=== PATIENT | male | born 1965 | race Caucasian/White ===

== ENCOUNTER 2021-01-26 11:32 | Inpatient (IN) ==
[2021-01-26] MEDS ORDERED: Aspirin 81 MG TAB.CHEW PO ONE (11:35)
[2021-01-26] MEDS ORDERED: methylPREDNISolone 125 MG/2 ML VIAL IVP ONE (11:44)
[2021-01-26] MEDS ORDERED: Ipratropium/Albuterol Neb 3 ML IH ONE (11:44)
[2021-01-26 11:53] LABS: Basophils % 0.4 %; Eosinophils # 0.2 K/mcL (0.0-0.6); Eosinophils % 2.2 %; Hematocrit 48.8 % (37.5-50.1); Hemoglobin 15.6 g/dL (12.9-16.9); Immature Granulocytes % 0.3 % (0-4); Lymphocytes # 2.1 K/mcL (0.6-4.6); Lymphocytes % 31.4 %; Mean Corpuscular Hemoglobin 29.3 pg (28.0-33.3); Mean Corpuscular Volume 91.6 fL (83.0-100.0); Mean Platelet Volume 9.8 fL (9.4-12.4); Monocytes # 0.6 K/mcL (0.0-1.3); Monocytes % 8.1 %; Neutrophils # 3.9 K/mcL (1.6-8.9); Platelet Count 204 K/mcL (140-400); Red Blood Count 5.33 M/mcL (4.19-5.50); Red Cell Distribution Width 13.2 % (11.5-14.5); Segmented Neutrophils % 57.6 %; White Blood Count 6.8 K/mcL (4.3-11.1)
[2021-01-26 12:00] LABS: Prothrombin Time 11.5 Seconds (9.4-12.1)
[2021-01-26 12:03] LABS: Activated Partial Thrombo Time 30.1 Seconds (26.0-36.0)
[2021-01-26] MEDS ORDERED: 0.9 % Sodium Chloride 1,000 ML IVC ONE ×2 (12:06→14:51)
[2021-01-26 12:22] LABS: Alanine Aminotransferase 17 Units/L (7-52); Albumin/Globulin Ratio 1.9 (1.1-2.2); Alkaline Phosphatase 84 Units/L (34-104); Aspartate Amino Transferase 18 Units/L (13-39); BUN/Creatinine Ratio 29 (6-26); Bilirubin,Direct 0.1 mg/dL (0.0-0.2); Bilirubin,Indirect 0.5 mg/dL (0.0-1.0); Bilirubin,Total 0.6 mg/dL (0.3-1.0); Blood Urea Nitrogen 30 mg/dL (6-20); Calcium 9.6 mg/dL (8.6-10.3); Carbon Dioxide 26 mEq/L (23-29); Chloride 109 mEq/L (98-107); Globulin 2.1 g/dL (2.4-3.5); Glucose 143 mg/dL (70-105); Lipase 31 Units/L (11-82); Osmolality,Calculated 301 (280-300); Potassium 4.3 mEq/L (3.5-5.1); Sodium 141 mEq/L (136-145); Total Protein 6.1 g/dL (6.4-8.9); Troponin I < 0.03 ng/mL (< 0.04); eGFR For African Americans > 60 (> 60); eGFR For Non-African Americans > 60 (> 60)
[2021-01-26] MEDS ORDERED: DilTIAZem 50 MG/50 ML IV.SOLN IVC SCH (12:30)
[2021-01-26] MEDS ORDERED: Azithromycin 500 MG in 0.9 % Sodium Chloride 250 ML IVPB ONE (12:36)
[2021-01-26] MEDS ORDERED: *HR* Heparin 5,000 UNIT/ML VIAL IVP PRN ×2 (12:52)
[2021-01-26] MEDS ORDERED: *HR* Heparin 5,000 UNIT/ML VIAL IVP ONE (12:52)
[2021-01-26] MEDS ORDERED: Melatonin 3 MG TABLET PO PRN (13:03)
[2021-01-26] MEDS ORDERED: Ondansetron ODT 4 MG TAB.RAPDIS SL PRN (13:03)
[2021-01-26] MEDS ORDERED: Mag Hydrox/Al Hydrox/Simeth 30 ML UDC PO PRN (13:03)
[2021-01-26] MEDS ORDERED: Naloxone 0.4 MG/ML INJ IVP PRN (13:03)
[2021-01-26] MEDS: Heparin 25,000UNIT/250ML 1/2NS 25,000 UNIT/250 ML IV.SOLN IVC SCH (14:00)
[2021-01-26] MEDS ORDERED: *HR* Metoprolol 5 MG/5 ML VIAL IVP ONE (14:52)
[2021-01-26] MEDS ORDERED: Perflutren Lipid Microsphere 1.3 ML in 0.9 % Sodium Chloride 8.7 ML IVP PRN (15:12)
[2021-01-26] MEDS: Levalbuterol Neb 1.25 MG/3 ML IH SCH ×2 (15:24→20:00)
[2021-01-26] MEDS: Ipratropium Neb 0.5 MG NEBULIZER IH SCH ×3 (15:24→23:29)
[2021-01-26] MEDS: DilTIAZem 50 MG/50 ML IV.SOLN IVC SCH ×2 (16:02→23:39)
[2021-01-26] MEDS: Nicotine 21 MG PATCH.TD24 TD SCH (16:23)
[2021-01-27 00:28] LABS: Hematocrit 44.9 % (37.5-50.1); Hemoglobin 14.6 g/dL (12.9-16.9); Mean Corpuscular HGB Conc 32.5 g/dL (31.6-35.5); Mean Corpuscular Hemoglobin 29.9 pg (28.0-33.3); Mean Corpuscular Volume 91.8 fL (83.0-100.0); Platelet Count 199 K/mcL (140-400); Red Blood Count 4.89 M/mcL (4.19-5.50); Red Cell Distribution Width 12.9 % (11.5-14.5); White Blood Count 7.3 K/mcL (4.3-11.1)
[2021-01-27 00:45] LABS: BUN/Creatinine Ratio 31 (6-26); Blood Urea Nitrogen 27 mg/dL (6-20); Carbon Dioxide 22 mEq/L (23-29); Chloride 107 mEq/L (98-107); Glucose 228 mg/dL (70-105); Osmolality,Calculated 296 (280-300); Potassium 3.7 mEq/L (3.5-5.1); Sodium 137 mEq/L (136-145); eGFR For African Americans > 60 (> 60); eGFR For Non-African Americans > 60 (> 60)
[2021-01-27] MEDS: Levalbuterol Neb 1.25 MG/3 ML IH SCH ×4 (03:48→20:05)
[2021-01-27] MEDS: Ipratropium Neb 0.5 MG NEBULIZER IH SCH ×5 (03:48→20:05)
[2021-01-27] MEDS: DilTIAZem 50 MG/50 ML IV.SOLN IVC SCH ×2 (05:28→14:30)
[2021-01-27] MEDS: Heparin 25,000UNIT/250ML 1/2NS 25,000 UNIT/250 ML IV.SOLN IVC SCH (05:30)
[2021-01-27 10:18] LABS: Magnesium 1.9 mg/dL (1.6-2.6)
[2021-01-27 10:31] LABS: Thyroid Stimulating Hormone 0.654 mcIU/mL (0.340-5.600)
[2021-01-27] MEDS ORDERED: *HR* Heparin 5,000 UNIT/ML VIAL IVP ONE (10:39)
[2021-01-27] MEDS ORDERED: *HR* Heparin 5,000 UNIT/ML VIAL IVP PRN ×2 (10:39)
[2021-01-27] MEDS ORDERED: Heparin 25,000UNIT/250ML 1/2NS 25,000 UNIT/250 ML IV.SOLN IVC SCH (10:45)
[2021-01-27] MEDS: predniSONE 20 MG TABLET PO SCH (11:13)
[2021-01-27] MEDS: Nicotine 21 MG PATCH.TD24 TD SCH (11:13)
[2021-01-27 13:33] LABS: Bilirubin,Urine Negative (Negative); Blood,Urine Trace (Negative); Clarity,Urine Clear (Clear); Color,Urine Light-Yellow (Yellow); Glucose,Urine (UA) >=1000 mg/dL (Normal); Ketones,Urine Trace mg/dL (Negative); Leukocyte Esterase,Urine Negative (Negative); Mucus,Urine Few per lpf (None-Few); Nitrite,Urine Negative (Negative); Protein,Urine Trace mg/dL (Neg-Trace); RBC,Urine 0-3 per hpf (0-3); Specific Gravity,Urine > 1.030 (1.010-1.025); Urobilinogen,Urine Normal (Normal); WBC,Urine 0-3 per hpf (0-3)
[2021-01-28] MEDS: Ipratropium Neb 0.5 MG NEBULIZER IH SCH ×7 (00:26→23:37)
[2021-01-28] MEDS: Levalbuterol Neb 1.25 MG/3 ML IH SCH ×4 (04:11→20:21)
[2021-01-28] MEDS: Heparin 25,000UNIT/250ML 1/2NS 25,000 UNIT/250 ML IV.SOLN IVC SCH (04:43)
[2021-01-28 04:50] LABS: Basophils % 0.2 %; Hematocrit 43.6 % (37.5-50.1); Hemoglobin 13.9 g/dL (12.9-16.9); Immature Granulocytes % 0.5 % (0-4); Lymphocytes # 1.5 K/mcL (0.6-4.6); Lymphocytes % 14.2 %; Mean Corpuscular HGB Conc 31.9 g/dL (31.6-35.5); Mean Corpuscular Hemoglobin 29.1 pg (28.0-33.3); Mean Corpuscular Volume 91.2 fL (83.0-100.0); Mean Platelet Volume 10.3 fL (9.4-12.4); Monocytes # 0.7 K/mcL (0.0-1.3); Monocytes % 6.6 %; Neutrophils # 8.4 K/mcL (1.6-8.9); Platelet Count 198 K/mcL (140-400); Red Blood Count 4.78 M/mcL (4.19-5.50); Red Cell Distribution Width 13.3 % (11.5-14.5); Segmented Neutrophils % 78.5 %; White Blood Count 10.7 K/mcL (4.3-11.1)
[2021-01-28] MEDS: DilTIAZem 50 MG/50 ML IV.SOLN IVC SCH (04:50)
[2021-01-28 05:06] LABS: Prothrombin Time 11.9 Seconds (9.4-12.1)
[2021-01-28 05:11] LABS: BUN/Creatinine Ratio 37 (6-26); Blood Urea Nitrogen 29 mg/dL (6-20); Calcium 8.8 mg/dL (8.6-10.3); Carbon Dioxide 23 mEq/L (23-29); Chloride 109 mEq/L (98-107); Glucose 130 mg/dL (70-105); Osmolality,Calculated 300 (280-300); Potassium 3.8 mEq/L (3.5-5.1); Sodium 141 mEq/L (136-145); eGFR For African Americans > 60 (> 60); eGFR For Non-African Americans > 60 (> 60)
[2021-01-28 05:12] LABS: Chol/HDL Ratio 3.8 (0-4.9)
[2021-01-28] MEDS: Aspirin 81 MG TAB.CHEW PO SCH (07:37)
[2021-01-28] MEDS: Metoprolol XL (24 HR) Succ 50 MG TAB.ER.24H PO SCH (07:37)
[2021-01-28] MEDS: predniSONE 20 MG TABLET PO SCH (07:37)
[2021-01-28 09:19] LABS: Estimated Average Glucose 126 mg/dl
[2021-01-28] MEDS: Nicotine 21 MG PATCH.TD24 TD SCH (10:40)
[2021-01-28] MEDS ORDERED: *HR* Midazolam HCl 2 MG/2 ML VIAL ONE (16:14)
[2021-01-28] MEDS ORDERED: ISOVUE-370 200 ML INFUS..BTL ONE (16:15)
[2021-01-28] MEDS ORDERED: Nitroglycerin 1,000 MCG/5 ML VIAL IV ONE (16:15)
[2021-01-28] MEDS ORDERED: *HR* FentaNYL (PF) 100 MCG/2 ML VIAL ONE (16:15)
[2021-01-28] MEDS ORDERED: *HR* Heparin 10,000 UNIT/10 ML VIAL ONE (16:15)
[2021-01-28] MEDS ORDERED: Heparin 1,000 UNITS/500 mL 500 ML ONE (16:15)
[2021-01-28] MEDS ORDERED: 0.9 % Sodium Chloride 2,000 ML ONE (16:15)
[2021-01-28] MEDS ORDERED: D5% in Water 100 ML ONE (16:45)
[2021-01-28] MEDS: DilTIAZem 50 MG in 0.9 % Sodium Chloride 40 ML IVC SCH (17:30)
[2021-01-29] MEDS: Ipratropium Neb 0.5 MG NEBULIZER IH SCH ×5 (04:16→20:38)
[2021-01-29] MEDS: Levalbuterol Neb 1.25 MG/3 ML IH SCH ×4 (04:16→20:37)
[2021-01-29 05:55] LABS: Basophils % 0.2 %; Eosinophils % 0.3 %; Hematocrit 46.1 % (37.5-50.1); Hemoglobin 14.7 g/dL (12.9-16.9); Immature Granulocytes % 0.4 % (0-4); Lymphocytes # 2.9 K/mcL (0.6-4.6); Lymphocytes % 29.3 %; Mean Corpuscular HGB Conc 31.9 g/dL (31.6-35.5); Mean Corpuscular Hemoglobin 29.2 pg (28.0-33.3); Mean Corpuscular Volume 91.7 fL (83.0-100.0); Mean Platelet Volume 10.3 fL (9.4-12.4); Monocytes # 0.7 K/mcL (0.0-1.3); Monocytes % 6.7 %; Neutrophils # 6.3 K/mcL (1.6-8.9); Platelet Count 197 K/mcL (140-400); Red Blood Count 5.03 M/mcL (4.19-5.50); Red Cell Distribution Width 13.6 % (11.5-14.5); Segmented Neutrophils % 63.1 %
[2021-01-29 06:15] LABS: BUN/Creatinine Ratio 30 (6-26); Blood Urea Nitrogen 26 mg/dL (6-20); Calcium 8.7 mg/dL (8.6-10.3); Carbon Dioxide 24 mEq/L (23-29); Chloride 108 mEq/L (98-107); Glucose 118 mg/dL (70-105); Osmolality,Calculated 296 (280-300); Potassium 3.8 mEq/L (3.5-5.1); Sodium 140 mEq/L (136-145); eGFR For African Americans > 60 (> 60); eGFR For Non-African Americans > 60 (> 60)
[2021-01-29] MEDS: Heparin 25,000UNIT/250ML 1/2NS 25,000 UNIT/250 ML IV.SOLN IVC SCH ×2 (06:31→18:26)
[2021-01-29 09:18] LABS: Phosphorous 3.4 mg/dL (2.7-4.5)
[2021-01-29] MEDS ORDERED: Metoprolol XL (24 HR) Succ 50 MG TAB.ER.24H PO SCH (10:30)
[2021-01-29] MEDS: lisinopriL 5 MG TABLET PO SCH (11:02)
[2021-01-29] MEDS: predniSONE 20 MG TABLET PO SCH (11:03)
[2021-01-29] MEDS: Aspirin 81 MG TAB.CHEW PO SCH (11:03)
[2021-01-29] MEDS: Nicotine 21 MG PATCH.TD24 TD SCH (11:12)
[2021-01-29] MEDS: Metoprolol XL (24 HR) Succ 50 MG TAB.ER.24H PO SCH ×2 (11:19→20:05)
[2021-01-29] MEDS: DilTIAZem 50 MG in 0.9 % Sodium Chloride 40 ML IVC SCH (11:20)
[2021-01-29] MEDS ORDERED: Lidocaine Viscous Oral Soln 15 ML SOLUTION ONE (12:50)
[2021-01-29] MEDS ORDERED: *HR* Midazolam HCl 5 MG/5 ML VIAL IVP ONE ×2 (12:51→12:54)
[2021-01-29] MEDS ORDERED: *HR* FentaNYL (PF) 250 MCG/5 ML VIAL ONE (12:51)
[2021-01-29] MEDS: *HR* Rivaroxaban 10 MG TABLET PO SCH (17:18)
[2021-01-30] MEDS: Ipratropium Neb 0.5 MG NEBULIZER IH SCH ×6 (00:18→20:14)
[2021-01-30] MEDS: Levalbuterol Neb 1.25 MG/3 ML IH SCH ×3 (04:09→16:01)
[2021-01-30 06:34] LABS: Mean Corpuscular HGB Conc 32.6 g/dL (31.6-35.5); Mean Corpuscular Hemoglobin 30.1 pg (28.0-33.3); Mean Corpuscular Volume 92.2 fL (83.0-100.0); Mean Platelet Volume 10.2 fL (9.4-12.4); Platelet Count 200 K/mcL (140-400); Red Blood Count 4.99 M/mcL (4.19-5.50); Red Cell Distribution Width 13.4 % (11.5-14.5); White Blood Count 10.3 K/mcL (4.3-11.1)
[2021-01-30 07:00] LABS: BUN/Creatinine Ratio 34 (6-26); Blood Urea Nitrogen 28 mg/dL (6-20); Calcium 8.7 mg/dL (8.6-10.3); Carbon Dioxide 24 mEq/L (23-29); Chloride 107 mEq/L (98-107); Glucose 104 mg/dL (70-105); Magnesium 2.1 mg/dL (1.6-2.6); Osmolality,Calculated 292 (280-300); Potassium 3.8 mEq/L (3.5-5.1); Sodium 138 mEq/L (136-145); eGFR For African Americans > 60 (> 60); eGFR For Non-African Americans > 60 (> 60)
[2021-01-30] MEDS: Metoprolol XL (24 HR) Succ 50 MG TAB.ER.24H PO SCH ×2 (08:48→22:15)
[2021-01-30] MEDS: predniSONE 20 MG TABLET PO SCH (08:49)
[2021-01-30] MEDS: lisinopriL 5 MG TABLET PO SCH (08:49)
[2021-01-30] MEDS: Aspirin 81 MG TAB.CHEW PO SCH (08:50)
[2021-01-30] MEDS ORDERED: *HR* FentaNYL (PF) 250 MCG/5 ML VIAL ONE (08:59)
[2021-01-30] MEDS: Nicotine 21 MG PATCH.TD24 TD SCH (09:00)
[2021-01-30] MEDS ORDERED: *HR* Midazolam HCl 5 MG/5 ML VIAL IVP ONE (09:00)
[2021-01-30] MEDS ORDERED: Lidocaine Viscous Oral Soln 15 ML SOLUTION ONE (09:19)
[2021-01-30] MEDS: *HR* Rivaroxaban 10 MG TABLET PO SCH (17:24)
[2021-01-30] MEDS ORDERED: Levalbuterol Neb 1.25 MG/3 ML IH PRN (20:13)
[2021-01-30] MEDS ORDERED: Ipratropium Neb 0.5 MG NEBULIZER IH PRN (20:13)
[2021-01-31 05:58] LABS: Hematocrit 48.4 % (37.5-50.1); Hemoglobin 15.1 g/dL (12.9-16.9); Mean Corpuscular HGB Conc 31.2 g/dL (31.6-35.5); Mean Corpuscular Hemoglobin 28.7 pg (28.0-33.3); Mean Corpuscular Volume 91.8 fL (83.0-100.0); Platelet Count 215 K/mcL (140-400); Red Blood Count 5.27 M/mcL (4.19-5.50); Red Cell Distribution Width 13.2 % (11.5-14.5); White Blood Count 11.3 K/mcL (4.3-11.1)
[2021-01-31 06:17] LABS: BUN/Creatinine Ratio 41 (6-26); Blood Urea Nitrogen 34 mg/dL (6-20); Calcium 8.8 mg/dL (8.6-10.3); Carbon Dioxide 25 mEq/L (23-29); Chloride 106 mEq/L (98-107); Glucose 99 mg/dL (70-105); Magnesium 2.1 mg/dL (1.6-2.6); Osmolality,Calculated 294 (280-300); Phosphorous 4.4 mg/dL (2.7-4.5); Potassium 3.9 mEq/L (3.5-5.1); Sodium 138 mEq/L (136-145); eGFR For African Americans > 60 (> 60); eGFR For Non-African Americans > 60 (> 60)
[2021-01-31 07:29] VITALS: BP 102/63
[2021-01-31] MEDS: Metoprolol XL (24 HR) Succ 50 MG TAB.ER.24H PO SCH (09:44)
[2021-01-31] MEDS: lisinopriL 5 MG TABLET PO SCH (09:44)
[2021-01-31] MEDS: Aspirin 81 MG TAB.CHEW PO SCH (09:44)
[2021-01-31] MEDS: Nicotine 21 MG PATCH.TD24 TD SCH (09:45)
== END 2021-01-31 12:35 | disposition home or self-care (01) | DRG 286 ==
LOC: SUATTDRO → EMEROOARM 11:32 → 2NENU 11:32 → 2NNU 14:50 → 2NENU 15:05 → SUATTDRO 01-28 15:40
PROVIDERS: ADMIT Family Medicine; ATTEND Internal Medicine

== ENCOUNTER 2021-12-04 21:04 | Inpatient (IN) ==
[2021-12-04] MEDS ORDERED: *HR* Metoprolol 5 MG/5 ML VIAL IVP ONE (21:36)
[2021-12-04] MEDS ORDERED: 0.9 % Sodium Chloride 1,000 ML IVC ONE (21:36)
[2021-12-04] MEDS ORDERED: Aspirin 325 MG TABLET PO ONE (21:36)
[2021-12-04 21:52] LABS: Basophils % 0.4 %; Eosinophils # 0.2 K/mcL (0.0-0.6); Hematocrit 42.6 % (37.5-50.1); Hemoglobin 14.1 g/dL (12.9-16.9); Immature Granulocytes % 0.4 % (0-4); Lymphocytes # 2.8 K/mcL (0.6-4.6); Lymphocytes % 37.8 %; Mean Corpuscular HGB Conc 33.1 g/dL (31.6-35.5); Mean Corpuscular Hemoglobin 30.7 pg (28.0-33.3); Mean Corpuscular Volume 92.8 fL (83.0-100.0); Mean Platelet Volume 9.9 fL (9.4-12.4); Monocytes # 0.7 K/mcL (0.0-1.3); Monocytes % 9.1 %; Neutrophils # 3.8 K/mcL (1.6-8.9); Platelet Count 164 K/mcL (140-400); Red Blood Count 4.59 M/mcL (4.19-5.50); Red Cell Distribution Width 12.5 % (11.5-14.5); Segmented Neutrophils % 50.3 %; White Blood Count 7.5 K/mcL (4.3-11.1)
[2021-12-04 21:57] LABS: INR 1.1; Prothrombin Time 12.5 Seconds (9.4-12.1)
[2021-12-04 22:00] LABS: Activated Partial Thrombo Time 37.3 Seconds (26.0-36.0)
[2021-12-04 22:02] LABS: D-Dimer < 215 ng/mLFEU (0-500)
[2021-12-04 22:12] LABS: BUN/Creatinine Ratio 35 (6-26); Blood Urea Nitrogen 35 mg/dL (6-20); Calcium 9.3 mg/dL (8.6-10.3); Carbon Dioxide 28 mEq/L (23-29); Chloride 104 mEq/L (98-107); Ethanol < 10 mg/dL (Less than 10); Glucose 122 mg/dL (70-105); Osmolality,Calculated 295 (280-300); Potassium 3.5 mEq/L (3.5-5.1); Sodium 138 mEq/L (136-145); Troponin I < 0.03 ng/mL (< 0.04); eGFR For African Americans > 60 (> 60); eGFR For Non-African Americans > 60 (> 60)
[2021-12-04 22:49] LABS: Bacteria,Urine Few per hpf (None-Few); Bilirubin,Urine Negative (Negative); Blood,Urine Small (Negative); Clarity,Urine Clear (Clear); Color,Urine Light-Yellow (Yellow); Glucose,Urine (UA) Normal (Normal); Ketones,Urine Negative (Negative); Leukocyte Esterase,Urine Negative (Negative); Mucus,Urine Few per lpf (None-Few); Nitrite,Urine Negative (Negative); PH,Urine 5.5 pH Units (5.0-8.0); Protein,Urine Trace mg/dL (Neg-Trace); RBC,Urine 0-3 per hpf (0-3); Specific Gravity,Urine 1.024 (1.010-1.025); Urobilinogen,Urine Normal (Normal); WBC,Urine 0-3 per hpf (0-3)
[2021-12-04 23:04] LABS: Amphetamine Screen,Urine Negative ng/mL (Cutoff=1000); Barbiturate Screen,Urine Negative ng/mL (Cutoff=200); Benzodiazepines Screen,Urine Negative ng/mL (Cutoff=200); Cannabinoid Screen,Urine Positive ng/mL (Cutoff = 50); Cocaine Screen,Urine Negative ng/mL (Cutoff= 300); Opiate Screen,Urine Negative ng/mL (Cutoff=300); Phencyclidine Screen,Urine Negative ng/mL (Cutoff=25)
[2021-12-05] MEDS ORDERED: 0.9 % Sodium Chloride 1,000 ML IVC ONE (00:48)
[2021-12-05] MEDS ORDERED: Melatonin 3 MG TABLET PO PRN (01:46)
[2021-12-05] MEDS ORDERED: Naloxone 0.4 MG/ML INJ IVP PRN (01:46)
[2021-12-05] MEDS ORDERED: Saliva Stimulant 44.3ml BOTTLE PO PRN ×2 (01:52→02:01)
[2021-12-05] MEDS ORDERED: D5% in Water 1,000 ML IVC PRN (02:49)
[2021-12-05] MEDS ORDERED: *HR* Dextrose 50 % in Water (Syg) 50 ML SYRINGE IVP PRN (02:49)
[2021-12-05] MEDS ORDERED: Dextrose 4 GM Chewable Tablets PO PRN ×2 (02:49)
[2021-12-05] MEDS ORDERED: Isovue-370 500 ML BOTTLE IVP ONE (03:19)
[2021-12-05] MEDS: Ipratropium/Albuterol Neb 3 ML IH SCH ×6 (04:02→23:08)
[2021-12-05 04:32] LABS: Hematocrit 40.3 % (37.5-50.1); Mean Corpuscular HGB Conc 32.3 g/dL (31.6-35.5); Mean Corpuscular Hemoglobin 30.1 pg (28.0-33.3); Mean Corpuscular Volume 93.3 fL (83.0-100.0); Platelet Count 154 K/mcL (140-400); Red Blood Count 4.32 M/mcL (4.19-5.50); Red Cell Distribution Width 12.7 % (11.5-14.5); White Blood Count 6.4 K/mcL (4.3-11.1)
[2021-12-05 04:42] LABS: Activated Partial Thrombo Time 43.1 Seconds (26.0-36.0); INR 1.8
[2021-12-05 04:54] LABS: Alanine Aminotransferase 28 Units/L (7-52); Albumin 3.4 g/dL (3.5-5.7); Albumin/Globulin Ratio 1.9 (1.1-2.2); Alkaline Phosphatase 68 Units/L (34-104); Aspartate Amino Transferase 17 Units/L (13-39); BUN/Creatinine Ratio 41 (6-26); Bilirubin,Total 0.7 mg/dL (0.3-1.0); Blood Urea Nitrogen 32 mg/dL (6-20); Carbon Dioxide 23 mEq/L (23-29); Chloride 108 mEq/L (98-107); Chol/HDL Ratio 2.9 (0-4.9); Cholesterol 89 mg/dL (< 200); Globulin 1.8 g/dL (2.4-3.5); Glucose 94 mg/dL (70-105); HDL Cholesterol 31 mg/dL (40-59); LDL Cholesterol,Calculated 43 mg/dL (< 100); Magnesium 1.8 mg/dL (1.6-2.6); Osmolality,Calculated 289 (280-300); Phosphorous 3.6 mg/dL (2.7-4.5); Potassium 3.9 mEq/L (3.5-5.1); Sodium 136 mEq/L (136-145); Total Protein 5.2 g/dL (6.4-8.9); Triglycerides 73 mg/dL (< 150); eGFR For African Americans > 60 (> 60); eGFR For Non-African Americans > 60 (> 60)
[2021-12-05 05:29] LABS: Adenovirus Not Detected (Not Detect); Bordetella Pertussis Not Detected (Not Detect); Chlamydophila pneumoniae Not Detected (Not Detect); Coronavirus 229E Not Detected (Not Detect); Coronavirus HKU1 Not Detected (Not Detect); Coronavirus NL63 Not Detected (Not Detect); Coronavirus OC43 Not Detected (Not Detect); Human Metapneumovirus Not Detected (Not Detect); Human Rhinovirus/Enterovirus Not Detected (Not Detect); Influenza A Subtype 2009 H1 Not Detected (Not Detect); Influenza B Not Detected (Not Detect); Mycoplasma pneumoniae Not Detected (Not Detect); Parainfluenza Virus 1 Not Detected (Not Detect); Parainfluenza Virus 2 Not Detected (Not Detect); Parainfluenza Virus 3 Not Detected (Not Detect); Parainfluenza Virus 4 Not Detected (Not Detect); Respiratory Syncytial Virus Not Detected (Not Detect); SARS-CoV-2 Not Detected (Not Detect)
[2021-12-05 06:07] LABS: Estimated Average Glucose 140 mg/dl; Hemoglobin A1C 6.5 %
[2021-12-05] MEDS: Budesonide/Formoterol 160/4.5 1 PUFF INH IH SCH ×2 (07:20→19:55)
[2021-12-05] MEDS: predniSONE 20 MG TABLET PO SCH (08:42)
[2021-12-05] MEDS: Aspirin 81 MG TAB.CHEW PO SCH (08:43)
[2021-12-05] MEDS: Multivit/Ca/Min/Fe/FA 1 TAB TABLET PO SCH (08:43)
[2021-12-05] MEDS: Nicotine 14 MG PATCH.TD24 TD SCH (08:43)
[2021-12-05] MEDS ORDERED: Chlorhexidine Rinse 15 ML MOUTHWASH MM SCH (09:00)
[2021-12-05] MEDS ORDERED: Metoprolol XL (24 HR) Succ 50 MG TAB.ER.24H PO SCH ×2 (09:00→11:05)
[2021-12-05] MEDS ORDERED: lisinopriL 5 MG TABLET PO SCH (09:00)
[2021-12-05] MEDS ORDERED: 0.9 % Sodium Chloride 1,000 ML IV ONE (11:21)
[2021-12-05] MEDS ORDERED: 0.9 % Sodium Chloride 1,000 ML ONE (11:27)
[2021-12-05] MEDS ORDERED: Perflutren Lipid Microsphere 1.3 ML in 0.9 % Sodium Chloride 8.7 ML IVP PRN (13:12)
[2021-12-05] MEDS: *HR* Metoprolol 5 MG/5 ML VIAL IVP PRN (16:03)
[2021-12-05] MEDS ORDERED: *HR* Metoprolol 5 MG/5 ML VIAL IVP ONE (16:25)
[2021-12-05] MEDS: *HR* Rivaroxaban 10 MG TABLET PO SCH (17:00)
[2021-12-05] MEDS ORDERED: Metoprolol XL (24 HR) Succ 50 MG TAB.ER.24H PO ONE (17:00)
[2021-12-06 03:27] LABS: Basophils % 0.2 %; Eosinophils % 0.5 %; Hematocrit 38.1 % (37.5-50.1); Hemoglobin 12.9 g/dL (12.9-16.9); Immature Granulocytes % 0.4 % (0-4); Lymphocytes # 1.9 K/mcL (0.6-4.6); Lymphocytes % 22.7 %; Mean Corpuscular HGB Conc 33.9 g/dL (31.6-35.5); Mean Corpuscular Hemoglobin 31.2 pg (28.0-33.3); Mean Platelet Volume 10.1 fL (9.4-12.4); Monocytes # 0.7 K/mcL (0.0-1.3); Monocytes % 8.2 %; Neutrophils # 5.7 K/mcL (1.6-8.9); Platelet Count 160 K/mcL (140-400); Red Blood Count 4.14 M/mcL (4.19-5.50); Red Cell Distribution Width 12.8 % (11.5-14.5); White Blood Count 8.3 K/mcL (4.3-11.1)
[2021-12-06 03:46] LABS: BUN/Creatinine Ratio 34 (6-26); Blood Urea Nitrogen 27 mg/dL (6-20); Calcium 8.4 mg/dL (8.6-10.3); Carbon Dioxide 25 mEq/L (23-29); Chloride 109 mEq/L (98-107); Glucose 131 mg/dL (70-105); Osmolality,Calculated 293 (280-300); Potassium 3.8 mEq/L (3.5-5.1); Sodium 138 mEq/L (136-145); eGFR For African Americans > 60 (> 60); eGFR For Non-African Americans > 60 (> 60)
[2021-12-06] MEDS: Ipratropium/Albuterol Neb 3 ML IH SCH ×2 (03:46→07:37)
[2021-12-06] MEDS: Budesonide/Formoterol 160/4.5 1 PUFF INH IH SCH ×2 (07:38→19:37)
[2021-12-06] MEDS: predniSONE 20 MG TABLET PO SCH (07:41)
[2021-12-06] MEDS: Multivit/Ca/Min/Fe/FA 1 TAB TABLET PO SCH (07:42)
[2021-12-06] MEDS: Aspirin 81 MG TAB.CHEW PO SCH (07:42)
[2021-12-06] MEDS: Nicotine 14 MG PATCH.TD24 TD SCH (07:43)
[2021-12-06] MEDS: *HR* Metoprolol 5 MG/5 ML VIAL IVP PRN (08:04)
[2021-12-06] MEDS ORDERED: lisinopriL 5 MG TABLET PO SCH (09:00)
[2021-12-06] MEDS ORDERED: Spironolactone 12.5 MG TABLET PO SCH (09:00)
[2021-12-06] MEDS ORDERED: Ipratropium/Albuterol Neb 3 ML IH PRN (10:11)
[2021-12-06] MEDS: *HR* Rivaroxaban 10 MG TABLET PO SCH (15:22)
[2021-12-07 01:37] LABS: Basophils % 0.2 %; Eosinophils % 0.4 %; Hematocrit 40.1 % (37.5-50.1); Hemoglobin 13.3 g/dL (12.9-16.9); Immature Granulocytes % 0.3 % (0-4); Lymphocytes # 2.3 K/mcL (0.6-4.6); Lymphocytes % 22.6 %; Mean Corpuscular HGB Conc 33.2 g/dL (31.6-35.5); Mean Corpuscular Hemoglobin 30.4 pg (28.0-33.3); Mean Corpuscular Volume 91.6 fL (83.0-100.0); Mean Platelet Volume 10.2 fL (9.4-12.4); Monocytes # 0.7 K/mcL (0.0-1.3); Platelet Count 175 K/mcL (140-400); Red Blood Count 4.38 M/mcL (4.19-5.50); Red Cell Distribution Width 12.7 % (11.5-14.5); Segmented Neutrophils % 69.5 %; White Blood Count 10.1 K/mcL (4.3-11.1)
[2021-12-07 01:54] LABS: BUN/Creatinine Ratio 35 (6-26); Blood Urea Nitrogen 28 mg/dL (6-20); Calcium 8.3 mg/dL (8.6-10.3); Carbon Dioxide 26 mEq/L (23-29); Chloride 107 mEq/L (98-107); Glucose 106 mg/dL (70-105); Osmolality,Calculated 290 (280-300); Sodium 137 mEq/L (136-145); eGFR For African Americans > 60 (> 60); eGFR For Non-African Americans > 60 (> 60)
[2021-12-07] MEDS: Budesonide/Formoterol 160/4.5 1 PUFF INH IH SCH ×2 (07:45→20:19)
[2021-12-07] MEDS: Aspirin 81 MG TAB.CHEW PO SCH (10:01)
[2021-12-07] MEDS: Multivit/Ca/Min/Fe/FA 1 TAB TABLET PO SCH (10:01)
[2021-12-07] MEDS: Nicotine 14 MG PATCH.TD24 TD SCH (10:01)
[2021-12-07] MEDS: predniSONE 20 MG TABLET PO SCH (10:01)
[2021-12-07] MEDS: *HR* Metoprolol 5 MG/5 ML VIAL IVP PRN (13:06)
[2021-12-07] MEDS: *HR* Rivaroxaban 10 MG TABLET PO SCH (16:32)
[2021-12-08 04:45] LABS: Hematocrit 41.6 % (37.5-50.1); Hemoglobin 13.6 g/dL (12.9-16.9); Mean Corpuscular HGB Conc 32.7 g/dL (31.6-35.5); Mean Corpuscular Volume 91.6 fL (83.0-100.0); Platelet Count 189 K/mcL (140-400); Red Blood Count 4.54 M/mcL (4.19-5.50); Red Cell Distribution Width 12.8 % (11.5-14.5); White Blood Count 10.6 K/mcL (4.3-11.1)
[2021-12-08 05:02] LABS: BUN/Creatinine Ratio 35 (6-26); Blood Urea Nitrogen 30 mg/dL (6-20); Calcium 8.3 mg/dL (8.6-10.3); Carbon Dioxide 29 mEq/L (23-29); Chloride 106 mEq/L (98-107); Glucose 109 mg/dL (70-105); Osmolality,Calculated 293 (280-300); Potassium 3.8 mEq/L (3.5-5.1); Sodium 138 mEq/L (136-145); eGFR For African Americans > 60 (> 60); eGFR For Non-African Americans > 60 (> 60)
[2021-12-08] MEDS: Budesonide/Formoterol 160/4.5 1 PUFF INH IH SCH (07:50)
[2021-12-08] MEDS: Multivit/Ca/Min/Fe/FA 1 TAB TABLET PO SCH (09:25)
[2021-12-08] MEDS: predniSONE 20 MG TABLET PO SCH (09:26)
[2021-12-08] MEDS: Aspirin 81 MG TAB.CHEW PO SCH (09:26)
[2021-12-08] MEDS: Nicotine 14 MG PATCH.TD24 TD SCH (09:26)
[2021-12-08] MEDS ORDERED: Lidocaine Viscous Oral Soln 15 ML SOLUTION MM PRN (09:28)
[2021-12-08] MEDS ORDERED: 0.9 % Sodium Chloride 500 ML IVC ONE ×2 (09:29→09:30)
[2021-12-08 09:48] VITALS: PULSE 99; TEMP 98; O2SAT 98
[2021-12-08] MEDS: *HR* Midazolam HCl 5 MG/5 ML VIAL IVP PRN ×3 (10:05→10:20)
[2021-12-08] MEDS: *HR* FentaNYL (PF) 100 MCG/2 ML VIAL IVP PRN ×3 (10:05→10:20)
[2021-12-08 12:14] VITALS: BP 104/74
== END 2021-12-08 15:28 | disposition home or self-care (01) | DRG 309 ==
LOC: EMEROOARM 21:04 → 2ANU 21:04 → SUATTDRO 12-05 01:17 → 2ANU 12-05 01:49 → SUATTDRO 12-06 10:36
PROVIDERS: ADMIT Internal Medicine; ATTEND Family Medicine